=== PATIENT | female | born 1965 | race Caucasian/White ===

== ENCOUNTER → 2020-01-19 | Outpatient (REF) | payer BC ==
[2020-01-19 17:34] LABS: THYROID STIMULATING HORMONE 9.39 uIU/ML (0.358-3.740)
[2020-01-20 09:07] LABS: FREE T4 0.91 NG/DL (0.76-1.46)
== END ==
LOC: M SFHCCLAY 09:27
PROVIDERS: ATTEND Family Medicine
DX: R63.5 Abnormal weight gain (principal); E89.0 Postprocedural hypothyroidism